=== PATIENT | male | born 1990 | race Caucasian/White ===

== ENCOUNTER 2022-04-27 19:52 | Emergency (ER) | payer OTHER ==
[~2022-04-27] VITALS: Ht 175.3 cm; Wt 100.0 kg
[2022-04-27] MEDS ORDERED: ROSU10TA72 PO (20:10)
[2022-04-27] MEDS ORDERED: METF-1211 PO (20:10)
[2022-04-27] MEDS ORDERED: GLIP10TA10 PO (20:15)
[2022-04-27 20:16] LABS: GLUCOSE,POINT OF CARE 82 MG/DL (70-110)
[2022-04-27 21:00] VITALS: BP 121/65
[2022-04-27] MEDS ORDERED: ACETAMINOPHEN 500 MG TABLET PO ONE (21:15)
[2022-04-27] MEDS ORDERED: BACITRACIN 0.9 GM PACKET OINTMENT TP ONE (21:15)
[2022-04-27] MEDS ORDERED: IBUPROFEN 600 MG TABLET PO ONE (21:15)
== END 2022-04-27 21:59 | disposition home or self-care (01) ==
LOC: EMS 19:58
DX: S63.91XA Sprain of unspecified part of right wrist and hand, initial encounter (principal); E11.9 Type 2 diabetes mellitus without complications; Z79.84 Long term (current) use of oral hypoglycemic drugs; W22.8XXA Striking against or struck by other objects, initial encounter; Y93.89 Activity, other specified; Y92.89 Other specified places as the place of occurrence of the external cause; Y99.8 Other external cause status
CPT/HCPCS: 82962; 99284